=== PATIENT | male | born 1995 | race Two or more races ===

== ENCOUNTER 2016-05-26 21:37 | Emergency (ER) | payer OTHER ==
[2016-05-26 23:19] LABS: PH,URINE 6.5 (5.0-8.0); URINE BILIRUBIN NEGATIVE (NEGATIVE); URINE BLOOD TRACE (NEGATIVE); URINE GLUCOSE (UA) NEGATIVE (NEGATIVE); URINE LEUKOCYTE ESTERASE NEGATIVE (NEGATIVE); URINE NITRITE NEGATIVE (NEGATIVE); URINE PROTEIN NEGATIVE (NEGATIVE); URINE UROBILINOGEN 1 mg/dL (0-1 mg/dl)
[2016-05-26 23:26] LABS: URINE APPEARANCE CLEAR; URINE COLOR YELLOW
[2016-05-26 23:27] LABS: URINE BACTERIA 0; URINE EPITHELIAL CELLS 0-1 /hpf; URINE RBC 0-1 /hpf; URINE WBC NEG /hpf
--- NOTE | 2016-05-27 08:37 | CT ---
ABD/PELVIS W/O CON: 05/26/2016 10:33 PM INDICATION: Low back pain, no injury.. COMPARISON: None. TECHNIQUE: Contiguous 3 mm transaxial images from a [employer] [address] scanner were obtained from the lung bases through the pubic symphysis without oral or intravenous contrast. Multiplanar images were created at the CT scanner. CT DI: 23.5 DLP: 1310.3 FINDINGS: Lung base: No abnormality is seen at the lung bases. There is no pericardial effusion. This examination is limited for the evaluation of solid organs and vascular structures due to the lack of intravenous contrast which is standard for urinary calculus assessment CT. Liver: Normal. Gallbladder: Normal Spleen: Normal. Pancreas: Normal. Adrenal Glands: Normal. Right kidney & ureter: - Calculi - No . - Ureter Calculi - No. - Obstruction / hydronephrosis - No Left kidney & ureter: - Calculi - No . - Ureter Calculi- No . - Obstruction / hydronephrosis - No The unopacified stomach and bowel is within normal limits. Appendix is unremarkable. Multiple small nodes are scattered throughout the mesentery. Within the left upper quadrant is a 1.8 x 1.5 cm node. Other areas of adenopathy are also present scattered throughout. No free fluid in the abdomen or pelvis. Urinary bladder: -Bladder Calculi- No . - Bladder is distended adequately. - Wall is thin. Bone windows- No lytic or sclerotic lesions. Spine maintains anatomic alignment. Probable Schmorl's node along the anterior superior endplate of L5. IMPRESSION: 1. No urinary tract calculi. 2. Non-contrast evaluation of the abdomen and pelvis is otherwise notable for mesenteric adenopathy of unknown clinical significance. Other findings as above Preliminary report was provided by [facility] at approximately 2354 hours on 05/26/2016.
== END 2016-05-27 00:21 | disposition home or self-care (01) ==
LOC: ED 21:37
DX: M54.5 Low back pain (principal); F17.210 Nicotine dependence, cigarettes, uncomplicated